=== PATIENT | male | born 1975 | race Caucasian/White ===

== ENCOUNTER 2021-03-31 22:54 | Emergency (ER) | payer BC, MEDICAID, MEDICARE ==
[~2021-03-31] VITALS: Ht 185.4 cm; Wt 79.5 kg
--- NOTE | 2021-03-31 23:22 | PHYS DOC ---
General Adult EDM: Chief Complaint: SUICDAL IDEATION HPI: HPI: Patient is a 46-year-old male who presents to the emergency department via EMS for complaints of suicidal ideation. Per EMS, patient was driving when he stopped in a gas station and notified the estimation workers that he wanted to kill himself. When asked why patient was brought into the emergency department patient states "I lost my way". Patient states that he has suicidal ideation with a plan to drown himself. Patient reports that he is attempted to kill himself for and attempted to jump off a bridge but did not. He is having auditory hallucinations but denies any visual hallucinations. He has a history of depression, he states that he used to take Cymbalta, Seroquel and Wellbutrin but stopped taking them because the medication stopped working. Patient does not follow up with anyone for outpatient psychiatric care but has been inpatient he states that research before. Patient denies any homicidal ideation. Patient reports drinking alcohol yesterday and last used meth 2 days ago. Patient denies any chest pain, shortness of breath, nausea, vomiting, dizziness. Patient is very tearful in the ER. (XIOMY WATTS APRN) Review of Systems: Review of Systems: Respiratory: See HPI Cardiovascular: See HPI GI: See HPI Neurologic: See HPI Psychiatric: See HPI (XIOMY WATTS APRN) Heart Score: C/O Chest Pain: No Risk Factors: Risk Factors: DM, Current or recent (<one month) smoker, HTN, HLP, family history of CAD, obesity. Risk Scores: Score 0 - 3: 2.5% MACE over next 6 weeks - Discharge Home Score 4 - 6: 20.3% MACE over next 6 weeks - Admit for Clinical Observation Score 7 - 10: 72.7% MACE over next 6 weeks - Early Invasive Strategies (XIOMY WATTS APRN) Allergies: Allergies: Allergies Coded Allergies Type Severity Reaction Last Updated Verified No Known Drug Allergies 03/31/21 No (XIOMY WATTS APRN) Physical Exam: PE: Constitutional: Well developed, well nourished, no acute distress, non-toxic appearance. [] HENT: Normocephalic, atraumatic, bilateral external ears normal, oropharynx moist, no oral exudates, nose normal. [] Eyes: PERRL, EOMI, conjunctiva normal, no discharge. [] Neck: Normal range of motion, no stridor Cardiovascular:Heart rate tachycardic rhythm, no murmur [] Lungs & Thorax: Bilateral breath sounds clear to auscultation [] Abdomen: Bowel sounds normal, soft, no tenderness, no masses, no pulsatile masses. [] Skin: Warm, dry, no erythema, no rash, patient has several raised areas to bilateral upper extremities, patient states that he does inject methamphetamines, no erythema noted to upper extremities. [] Back: Normal range of motion Extremities: No tenderness, no cyanosis, no clubbing, ROM intact, no edema. [] Neurologic: Alert and oriented X 3, normal motor function, normal sensory function, no focal deficits noted. [] Psychologic: Affect normal, judgement normal, mood normal. [] (XIOMY WATTS APRN) EKG: EKG: [] (XIOMY WATTS APRN) Radiology/Procedures: Radiology/Procedures: [] (XIOMY WATTS APRN) Course & Med Decision Making: Course & Med Decision Making Pertinent Labs and Imaging studies reviewed. (See chart for details) [] Patient presents emergency department for suicidal ideation with a plan and auditory hallucinations. Patient has no complaints of chest pain, shortness of breath, nausea, vomiting, dizziness. He reports that he has been off of his medications because they did not work. Patient was diagnosed with depression a nd used to take Cymbalta, Seroquel and Wellbutrin. Patient not follow-up with anyone outpatient for psychiatric care but did stay inpatient at [facility] psych he states. Drank alcohol yesterday and injected methamphetamines 2 days ago. Blood work and urinalysis performed for medical clearance. Patient to be evaluated by member of the psychiatric assessment team. 0114: patients lab work is pending, pat consult pending. I discussed patients case with supervising physician who will assume patient care at this time due to shift change. (XIOMY WATTS APRN) Course & Med Decision Making PAT team is recommending inpatient psychiatric admission. Signed out to oncoming physician pending re-evaluation this morning to determine the most appropriate facility/disposition. (JESSICA DOS SANTOS MD) Dragon Disclaimer: Dragon Disclaimer: This electronic medical record was generated, in whole or in part, using a voice recognition dictation system. (XIOMY WATTS APRN) Departure Departure Impression: Primary Impression: Suicidal ideation XIOMY WATTS APRN Mar 31, 2021 23:22 JESSICA DOS SANTOS MD Apr 01, 2021 06:06
[2021-04-01 00:32] LABS: BASO % 1 % (0-3); EOS % 1 % (0-3); HEMATOCRIT 33.8 % (39.0-53.0); LYMPH # 0.3 x10^3/uL (1.0-4.8); LYMPH % 12 % (24-48); MEAN CORPUSCULAR HEMOGLOBIN 25 pg (25-35); MEAN CORPUSCULAR HGB CONC 32 g/dL (31-37); MEAN CORPUSCULAR VOLUME 77 fL (79-100); MONO # 0.1 x10^3/uL (0.0-1.1); MONO % 6 % (0-9); NEUT # 1.9 x10^3/uL (1.8-7.7); NEUT % 81 % (31-73); PLATELET COUNT 122 x10^3/uL (140-400); RED BLOOD COUNT 4.38 x10^6/uL (4.30-5.70); WHITE BLOOD COUNT 2.3 x10^3/uL (4.0-11.0)
[2021-04-01 01:03] LABS: CALCIUM 8.1 mg/dL (8.5-10.1); GFR 81.2; POTASSIUM 3.7 mmol/L (3.5-5.1)
[2021-04-01 01:09] LABS: ALBUMIN 3.2 g/dL (3.4-5.0); ALBUMIN/GLOBULIN RATIO 0.9 (1.0-1.7); TOTAL PROTEIN 6.6 g/dL (6.4-8.2)
[2021-04-01 01:38] LABS: BILIRUBIN,URINE NEGATIVE (NEG); CLARITY,URINE CLEAR; COLOR,URINE YELLOW; NITRITE,URINE NEGATIVE (NEG); PROTEIN,URINE NEGATIVE (NEG-TRACE)
[2021-04-01 01:44] LABS: BACTERIA,URINE 0 /HPF (0-FEW); BARBITURATES NEG (NEG); BENZODIAZEPINES NEG (NEG); CANNABINOIDS NEG (NEG); COCAINE POS (NEG); METHADONE NEG (NEG); OPIATES POS (NEG); PHENCYCLIDINE NEG (NEG); RBC,URINE 0 /HPF (0-2); WBC,URINE 0 /HPF (0-4)
[2021-04-01 01:45] LABS: AMORPHOUS SEDIMENT,UR PRESENT /HPF
[2021-04-01 01:50] LABS: AMPHETAMINE/METHAMPHETAMINE POS (NEG)
[2021-04-01 12:07] VITALS: BP 148/99
--- NOTE | 2021-04-02 13:15 | NUR ---
IP: Attwempted to contact pt concerning covid results. No answer. No voicemail available.
== END 2021-04-01 12:15 | disposition home or self-care (01) ==
LOC: ER 22:54
DX: R45.851 Suicidal ideations (principal); Z20.822 Contact with and (suspected) exposure to COVID-19
CPT/HCPCS: 36415; 80053; 80307; 81001; 85025; 87426; 99285; G0480; U0003; U0005